=== PATIENT | male | born 1965 | race Hispanic/Latino ===

== ENCOUNTER 2017-01-02 16:47 | Outpatient (CLI) | payer OTHER ==
[2017-01-02 17:09] LABS: #Basophils 0.1 thou/uL (0.0-0.2); #Eosinphils 0.2 thou/uL (0.0-0.7); #Lymphocytes 2.7 thou/uL (1.20-3.40); #Monocytes 0.5 thou/uL (0.11-0.59); #Neutrophils 5.6 thou/uL (1.40-6.50); %Basophils 0.7 % (0.0-1.0); %Lymphocytes 29.2 % (21.0-51.0); Hematocrit 41.4 % (42.0-52.0); Mean Platelet Volume 8.3 fL (7.4-10.4); Red Blood Cell (RBC) Count 4.86 mill/uL (4.70-6.10); White Blood Cell (WBC) Count 9.1 thou/uL (4.8-10.8)
[2017-01-02 17:17] LABS: ALT (SGPT) 25 U/L (0-55); AST (SGOT) 23 U/L (5-34); Alkaline Phosphatase 68 U/L (40-150); Anion Gap 17 mmol/L (10-20); BUN (Urea Nitrogen) 17 mg/dL (8.9-20.6); Bilirubin, Total 0.4 mg/dL (0.2-1.2); Calc. Creatinine Clearance 0 mL/min (70-130); Calcium 9.8 mg/dL (7.8-10.44); Carbon Dioxide 21 mmol/L (22-29); Chloride 106 mmol/L (98-107); Estimated GFR-MDRD 72; Globulin 2.9 g/dL (2.4-3.5); Protein, Total 7.4 g/dL (6.0-8.3)
[2017-01-02 17:22] LABS: Hemoglobin A1c 6.1 % (4.0-6.0)
[2017-01-03 18:00] LABS: Microalbumin Urine 1.4 mg/dL (0.5-50.0)
== END 2017-01-02 16:48 | disposition home or self-care (01) ==
LOC: NAV SJFMSP 16:47
PROVIDERS: ATTEND Family Medicine
DX: E11.9 Type 2 diabetes mellitus without complications (principal)
CPT/HCPCS: 80053; 82043; 83036; 84439; 84443; 85025

== ENCOUNTER 2017-08-06 07:57 | Outpatient (CLI) | payer BC ==
[2017-08-06 08:50] LABS: Anion Gap 13 mmol/L (10-20); BUN (Urea Nitrogen) 15 mg/dL (8.9-20.6); Calc. Creatinine Clearance 0 mL/min (70-130); Calcium 9.6 mg/dL (7.8-10.44); Carbon Dioxide 24 mmol/L (22-29); Cardiac Risk 3.4 (Less than 4.5); Chloride 105 mmol/L (98-107); Cholesterol 126 mg/dl (< 200 Desired); Estimated GFR-MDRD 75; Glucose 170 mg/dL (70-105); HDL Cholesterol 37 mg/dL (>60 Neg Risk); LDL Cholesterol, Calculated 75 mg/dL; Potassium 4.2 mmol/L (3.5-5.1); Sodium 138 mmol/L (136-145); Triglycerides 69 mg/dL (Less than 150)
[2017-08-06 08:58] LABS: Hemoglobin A1c 6.6 % (4.0-6.0)
== END 2017-08-06 07:58 | disposition home or self-care (01) ==
LOC: NAV LAB 07:57
PROVIDERS: ATTEND Family Medicine
DX: Z12.5 Encounter for screening for malignant neoplasm of prostate (principal); Z12.11 Encounter for screening for malignant neoplasm of colon; E11.9 Type 2 diabetes mellitus without complications
CPT/HCPCS: 36415; 80048; 80061; 82274; 83036; G0103

== ENCOUNTER 2019-09-05 11:07 | Outpatient (CLI) | payer BC ==
--- NOTE | 2019-09-05 11:31 | RAD ---
Left calcaneus 2 views HISTORY: Left heel pain. FINDINGS: Mild degenerative changes of the subtalar facets. No acute fracture, dislocation, or aggres sive osseous erosions. Plantar enthesophyte arises from the inferior aspect of the calcaneus. Prominent calcification over the arterial structures. IMPRESSION: Mild degenerative changes. No acute osseous abnormalities are demonstrated. Plantar heel spur. Atherosclerosis.
== END 2019-09-05 11:08 | disposition home or self-care (01) ==
LOC: NAV RAD 11:07
PROVIDERS: ATTEND Family Medicine
DX: M79.672 Pain in left foot (principal); M19.072 Primary osteoarthritis, left ankle and foot

== ENCOUNTER 2021-10-03 17:46 | Emergency (ER) | payer OTHER, BC ==
[2021-10-03] MEDS ORDERED: Bacitracin 1 PK ONE ×2 (19:39)
== END 2021-10-03 19:14 | disposition home or self-care (01) ==
LOC: NAV ERS 17:46
DX: S40.812A Abrasion of left upper arm, initial encounter (principal); S40.212A Abrasion of left shoulder, initial encounter; S60.419A Abrasion of unspecified finger, initial encounter; M20.011 Mallet finger of right finger(s); V28.4XXA Motorcycle driver injured in noncollision transport accident in traffic accident, initial encounter; Z79.899 Other long term (current) drug therapy; Z79.84 Long term (current) use of oral hypoglycemic drugs; I10 Essential (primary) hypertension; E11.9 Type 2 diabetes mellitus without complications
CPT/HCPCS: 29130; 99283